=== PATIENT | female | born 1935 | race Caucasian/White ===

== ENCOUNTER 2020-04-14 06:22 | Day surgery (SDC) | payer MEDICARE ==
[2020-04-12 16:40] VITALS: BMI 28.9
[2020-04-14 07:21] LABS: Hemoglobin 13.2 g/dL (12.0-16.0)
[2020-04-14 07:35] LABS: Anion Gap 15 mmol/L (10-20); BUN (Urea Nitrogen) 18 mg/dL (9.8-20.1); Calc. Creatinine Clearance 58 mL/min (70-130); Calcium 9.1 mg/dL (7.8-10.44); Carbon Dioxide 27 mmol/L (23-31); Chloride 102 mmol/L (98-107); Estimated GFR-MDRD 68; Glucose 92 mg/dL (83-110); Potassium 4.3 mmol/L (3.5-5.1); Sodium 140 mmol/L (136-145)
[2020-04-14] MEDS ORDERED: Lidocaine 1% w/Epinephrine 1:100K 20 ML VIAL ONE (08:13)
[2020-04-14] MEDS ORDERED: Fentanyl 100 MCG/2 ML VIAL ONE (08:19)
--- NOTE | 2020-04-14 13:21 | EKG ---
Test Reason : PREOP Blood Pressure : / mmHG Vent. Rate : 085 BPM Atrial Rate : 085 BPM P-R Int : 164 ms QRS Dur : 086 ms QT Int : 356 ms P-R-T Axes : 007 -03 001 degrees QTc Int : 423 ms Normal sinus rhythm Normal ECG Confirmed by EULA QUIGLEY ([id number]) on 04/14/2020 1:21:17 PM Referred By: JOSUE Confirmed By:EULA QUIGLEY
== END 2020-04-14 09:10 | disposition home or self-care (01) ==
LOC: SDC 06:22
PROVIDERS: ATTEND Specialist
DX: K11.8 Other diseases of salivary glands (principal); R22.0 Localized swelling, mass and lump, head; I10 Essential (primary) hypertension; E07.9 Disorder of thyroid, unspecified; D68.9 Coagulation defect, unspecified; Z53.8 Procedure and treatment not carried out for other reasons; Z79.899 Other long term (current) drug therapy; Z88.0 Allergy status to penicillin; Z88.1 Allergy status to other antibiotic agents
CPT/HCPCS: 36415; 80048; 85014; 85018; 93005; 93010; J3010

== ENCOUNTER 2020-05-19 09:51 | Day surgery (SDC) | payer MEDICARE ==
[2020-05-19] MEDS ORDERED: PROPOFOL 200 MG/20 ML VIAL ONE (11:19)
[2020-05-19] MEDS ORDERED: PHENYLEPHRINE-NS 100 MCG/ML 10 ML SYRINGE ONE (11:19)
[2020-05-19] MEDS ORDERED: Ondansetron PF 4 MG/2 ML Vial ONE (11:19)
[2020-05-19] MEDS ORDERED: Lidocaine 1% PF 5 ML VIAL ONE (11:19)
[2020-05-19] MEDS ORDERED: Dexamethasone 20 MG/5 ML VIAL ONE (11:19)
[2020-05-19] MEDS ORDERED: EPHEDRINE 25 MG/5 ML SYRINGE ONE (11:19)
[2020-05-19] MEDS ORDERED: Lidocaine 1% w/Epinephrine 1:100K 20 ML VIAL ONE (11:28)
[2020-05-19] MEDS ORDERED: Fentanyl 100 MCG/2 ML VIAL ONE (12:00)
[2020-05-19] MEDS ORDERED: Bacitracin Zinc Ointment 30 gm TUBE ONE (12:07)
[2020-05-19] MEDS ORDERED: Ondansetron ODT 4 MG TAB ONE (15:30)
--- NOTE | 2020-05-20 14:53 | OP ---
DATE OF PROCEDURE: 05/19/2020 PREOPERATIVE DIAGNOSIS: Right parotid mass. POSTOPERATIVE DIAGNOSIS: Right parotid mass. PROCEDURES PERFORMED: 1. Right superficial parotidectomy with facial nerve dissection. 2. Facial nerve monitoring for 1-1/2 hours. PROCEDURE IN DETAIL: After consent was obtained, the patient was identified and brought to the operating room and placed on the operating room table in supine position. General endotracheal anesthesia was obtained. The patient was positioned for surgery. Facial nerve monitors were placed on the upper and lower branches of the facial nerve and the orbicularis auris and orbicularis oculi. This was then documented to be functioning well. We then proceeded with prepping and draping the patient and positioning for surgery. The preauricular incision was delineated and carried down in a curvilinear fashion to an area 2 fingerbreadths below the angle of the mandible and the natural skin crease. Incision was then made after this area was infiltrated with 1% lidocaine with 1:100,000 epinephrine and the incision was carried down through the skin and subcutaneous tissues, and also ultimately down to the level of the SMAS. We then elevated the flap at the level of the and extending up to represent the parotid fascia. The flap was then suture secured anteriorly. We continued our dissection. We dissected along the anterior aspect of the sternocleidomastoid muscle and ultimately anterior to the ear canal and was able to ultimately identify the trunk of the facial nerve, located between the pointer cartilage and the insertion of the posterior aspect of the digastric muscle. We then followed this along the pes, and ultimately started following the upper and lower branches. This then allowed us to focus more on the tail of the parotid lesion, which was excised and sent for histologic evaluation in a hemostatic fashion. The specimen was consistent with a benign mass and the decision was made to then obtain hemostasis in the wound with a bipolar or suture ligation and closed the wound. We then reapproximated the parotid fascia with the anterior aspect of the sternocleidomastoid muscle and was able to replace the flap and repaired the incision in layers with 5-0 Monocryl used for the deeper layers and 6-0 Prolene for the skin. A sterile dressing was applied. The patient was awakened. Facial nerve was intact at the completion of the procedure. The patient was awakened, extubated, taken to the recovery room in a stable condition prior to discharge home. Job ID: [id number]
== END 2020-05-19 16:55 | disposition home or self-care (01) ==
LOC: SDC 09:51
PROVIDERS: ATTEND Specialist
PROC: 0CB80ZZ Excision of Right Parotid Gland, Open Approach (ICD-10-PCS; principal; 2020-05-19)
DX: D11.0 Benign neoplasm of parotid gland (principal); I10 Essential (primary) hypertension; Z79.899 Other long term (current) drug therapy; Z88.0 Allergy status to penicillin; Z88.1 Allergy status to other antibiotic agents
CPT/HCPCS: 88307; 88311; J1100; J2405; J2704; J3010; Q0162